=== PATIENT | male | born 1975 | race Caucasian/White ===

== ENCOUNTER 2017-06-19 12:03 | Emergency (ER) | payer OTHER ==
[~2017-06-19] VITALS: Ht 182.9 cm; Wt 90.7 kg
[2017-06-19] MEDS ORDERED: FLUOXETINE HCL10 MG PO (12:18)
[2017-06-19] MEDS ORDERED: LISINOPRIL-HCT1 EAC1 PO (12:18)
[2017-06-19] MEDS ORDERED: KETOROLAC TROME10 MG PO (12:40)
[2017-06-19] MEDS ORDERED: BACLOFEN20 MG PO (12:40)
== END 2017-06-19 12:47 | disposition home or self-care (01) ==
LOC: ED 12:03
DX: M99.01 Segmental and somatic dysfunction of cervical region (principal); M99.02 Segmental and somatic dysfunction of thoracic region; M62.830 Muscle spasm of back; Z88.0 Allergy status to penicillin; Z88.1 Allergy status to other antibiotic agents; Z88.2 Allergy status to sulfonamides; Z88.5 Allergy status to narcotic agent; Z88.8 Allergy status to other drugs, medicaments and biological substances; Z79.899 Other long term (current) drug therapy
CPT/HCPCS: 99283